=== PATIENT | male | born 1970 | race African-American/Black ===

== ENCOUNTER 2016-12-02 17:17 | Emergency (ER) | payer MEDICAID ==
[~2016-12-02] VITALS: Ht 185.4 cm; Wt 97.5 kg
[~2016-12-02 17:17] MED LIST: AMLO10TA4 PO; ASPI-1035 PO; BENA20TA3 PO; HYDR25TA PO
[2016-12-02] MEDS ORDERED: ASPIRIN 81MG TABLET PO STA (21:12)
[2016-12-02 21:42] LABS: BASOPHILS % 0.2 % (0.0-2.0); EOSINOPHILS % 1.3 % (0.0-5.0); HEMATOCRIT. 40.6 % (42.0-52.0); HEMOGLOBIN. 13.7 g/dL (14.0-18.0); LYMPHOCYTES % 22.9 % (20.0-50.0); MEAN CORPUSCULAR HEMOGLOBIN 29.3 pg (28.0-32.0); MEAN CORPUSCULAR HGB CONC 33.9 g/dL (31.0-37.0); MEAN CORPUSCULAR VOLUME 86.4 fL (80.0-94.0); MONOCYTES % 8.8 % (2.0-8.0); NEUTROPHILS % 66.8 % (40.0-76.0); PLATELET 164 x1000/uL (130-400); RED CELL DISTRIBUTION WIDTH 13.7 % (11.6-14.6); WHITE BLOOD COUNT 6.4 x1000/uL (4.5-11.0)
[2016-12-02 21:50] LABS: ANION GAP 11; CARBON DIOXIDE 31 mEq/L (21-32); CHLORIDE 101 mEq/L (98-107); INDEX HEMOLYSI 1 (1-3); INDEX ICTERIC 1 (1-4); INDEX LIPEMIC 1 (1-3); LIPASE 147 IU/L (73-393); UREA NITROGEN BLOOD 17 mg/dL (7-21); eGFR > 60 mL/min (>60)
[2016-12-02 21:51] LABS: TROPONIN I < 0.02 ng/mL (0.00-0.04)
[2016-12-03 00:03] VITALS: BP 133/78
== END 2016-12-03 00:38 | disposition home or self-care (01) ==
LOC: ER 23:15
DX: R07.89 Other chest pain (principal); I10 Essential (primary) hypertension; Z79.82 Long term (current) use of aspirin; Z79.899 Other long term (current) drug therapy
CPT/HCPCS: 36415; 71010; 80048; 83690; 84484; 85025; 85379; 93005; 99285

== ENCOUNTER 2017-03-23 11:20 | Emergency (ER) | payer MEDICAID ==
[~2017-03-23] VITALS: Ht 185.4 cm; Wt 98.0 kg
[~2017-03-23 11:20] MED LIST changes: -ASPI-1035 PO; +ASPI-1159 PO
[2017-03-23] MEDS ORDERED: SODIUM CHLORIDE 0.9% 1,000 ML IV ONE (13:44)
[2017-03-23] MEDS ORDERED: ONDANSETRON HCL 4MG/2ML VIAL IV STA (13:44)
[2017-03-23 14:54] LABS: INR 1.2
[2017-03-23 14:56] LABS: HEMATOCRIT. 37.5 % (42.0-52.0); HEMOGLOBIN. 12.8 g/dL (14.0-18.0); MEAN CORPUSCULAR HEMOGLOBIN 28.8 pg (28.0-32.0); MEAN CORPUSCULAR VOLUME 84.6 fL (80.0-94.0); MEAN PLATELET VOLUME 8.7 fl (7.4-10.4); PLATELET 162 x1000/uL (130-400); RED BLOOD CELL COUNT 4.43 mill/uL (4.7-6.1); RED CELL DISTRIBUTION WIDTH 13.4 % (11.6-14.6)
[2017-03-23 15:03] LABS: CARBON DIOXIDE 28 mEq/L (21-32); CHLORIDE 99 mEq/L (98-107); ETHANOL BLOOD < 10 mg/dL
[2017-03-23 15:27] LABS: CLARITY URINE CLEAR (CLEAR); COLOR URINE YELLOW (YELLOW); GLUCOSE URINE NEGATIVE (NEGATIVE); KETONES URINE NEGATIVE (NEGATIVE); LEUKOCYTE ESTERASE URINE NEGATIVE (NEGATIVE); NITRITE URINE NEGATIVE (NEGATIVE); OCCULT BLOOD URINE NEGATIVE (NEGATIVE); PH URINE 5.5 (4.5-8.0); PROTEIN URINE NEGATIVE (NEGATIVE); SPECIFIC GRAVITY URINE 1.014 (1.005-1.030); UROBILINOGEN URINE 0.2 E.U./dL (0.2-1.0)
[2017-03-23 15:48] LABS: PLATELET ESTIMATE NORMAL
[2017-03-23 18:35] VITALS: BP 116/78
== END 2017-03-23 18:46 | disposition home or self-care (01) ==
LOC: ER 15:08
DX: K29.00 Acute gastritis without bleeding (principal); E87.6 Hypokalemia; I10 Essential (primary) hypertension; M60.9 Myositis, unspecified; Z79.82 Long term (current) use of aspirin
CPT/HCPCS: 36415; 80053; 81003; 83690; 85025; 85610; 96361; 96374; 99284; G0482; J2405; J7030; Z7610

== ENCOUNTER 2017-11-29 15:59 | Emergency (ER) | payer MEDICAID, OTHER ==
[~2017-11-29] VITALS: Ht 182.9 cm; Wt 94.1 kg
[2017-11-29 18:27] LABS: BASOPHILS % 0.3 % (0.0-2.0); EOSINOPHILS % 1.5 % (0.0-5.0); HEMATOCRIT. 41.3 % (42.0-52.0); HEMOGLOBIN. 14.2 g/dL (14.0-18.0); LYMPHOCYTES % 21.2 % (20.0-50.0); MEAN CORPUSCULAR HEMOGLOBIN 28.8 pg (28.0-32.0); MEAN CORPUSCULAR VOLUME 83.6 fL (80.0-94.0); MEAN PLATELET VOLUME 8.1 fl (7.4-10.4); MONOCYTES % 9.1 % (2.0-8.0); NEUTROPHILS % 67.9 % (40.0-76.0); PLATELET 226 x1000/uL (130-400); RED BLOOD CELL COUNT 4.94 mill/uL (4.7-6.1)
[2017-11-29 18:29] LABS: CHLORIDE 100 mEq/L (98-107)
[2017-11-29] MEDS ORDERED: SODIUM CHLORIDE 0.9% 1,000 ML IV ONE (21:26)
[2017-11-29] MEDS ORDERED: ONDANSETRON HCL 4MG/2ML VIAL IV ONE (22:00)
[2017-11-29 23:26] VITALS: BP 128/81
== END 2017-11-29 23:27 | disposition home or self-care (01) ==
LOC: ER 16:33
DX: R19.7 Diarrhea, unspecified (principal); R11.2 Nausea with vomiting, unspecified; R42 Dizziness and giddiness; I10 Essential (primary) hypertension; Z79.82 Long term (current) use of aspirin
CPT/HCPCS: 36415; 80048; 85025; 93005; 96361; 96374; 99285; J2405; J7030